=== PATIENT | female | born 2005 | race American Indian/Alaskan Native ===

== ENCOUNTER 2024-02-12 22:58 | Emergency (ER) | payer MEDICAID ==
[2024-02-13] MEDS: Lidocaine 1% 5 ML VIAL INJECT ONE (00:01)
[2024-02-13] MEDS: Bacitracin Oint 1 GM U/D Packet TOP ONE (00:01)
== END 2024-02-13 00:25 | disposition home or self-care (01) ==
LOC: JP.ED 22:58
DX: L60.0 Ingrowing nail (principal); F17.200 Nicotine dependence, unspecified, uncomplicated; Z88.0 Allergy status to penicillin
CPT/HCPCS: 11730; 99283-25